=== PATIENT | male | born 1960 | race Caucasian/White ===

== ENCOUNTER → 2016-06-09 | Outpatient (CLI) | payer BC ==
[~2016-06-09] MED LIST: ALBU17IN2 INH; ALEV220T26 PO; ECOT325T5; IBUP80TA PO; MULT1TAB11 PO; No Historical Meds; OXYC-299 PO; PERC5TAB8; PERC7.5T3 PO
[2016-06-09 11:01] LABS: MEAN CORPUSCULAR HEMOGLOBIN 30.1 pg (27.0-33.0); MEAN CORPUSCULAR HGB CONC 33.3 g/dl (32.0-36.5); MEAN CORPUSCULAR VOLUME 90.4 fl (80.0-96.0); RED CELL DISTRIBUTION WIDTH 11.8 % (11.5-14.5); WHITE BLOOD COUNT 5.9 K/mm3 (4.0-10.0)
[2016-06-09 11:14] LABS: INR 0.95
--- NOTE | 2016-06-09 11:23 | ECGEPIP ---
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
[2016-06-09 11:29] LABS: ALBUMIN/GLOBULIN RATIO 1.14 (1.00-1.93); ALKALINE PHOSPHATASE 80 U/L (45-117); ALT/SGPT 38 U/L (12-78); ANION GAP 7 MEQ/L (8-16); AST/SGOT 20 U/L (15-37); BILIRUBIN,TOTAL 0.3 MG/DL (0.2-1.0); BLOOD UREA NITROGEN 17 MG/DL (7-18); CALCIUM LEVEL 8.8 MG/DL (8.5-10.1); CARBON DIOXIDE LEVEL 29 MEQ/L (21-32); CHLORIDE LEVEL 106 MEQ/L (98-107); CREATININE FOR GFR 0.91 MG/DL (0.70-1.30); GLOMERULAR FILTRATION RATE > 60.0 (>56); GLUCOSE, FASTING 88 MG/DL (70-105); POTASSIUM SERUM 4.4 MEQ/L (3.5-5.1); SODIUM LEVEL 142 MEQ/L (136-145); TOTAL PROTEIN 7.5 GM/DL (6.4-8.2)
--- NOTE | 2016-06-09 16:14 | REP ---
Chest x-ray: Two views. History: Tobacco use. Comparison study October 12, 2008. Findings: There is mild left lower lobe discoid atelectasis or linear fibrosis. The lungs are otherwise well inflated and clear. The pleural angles are sharp. Heart size is normal. There are degenerative changes in the thoracic spine. Pulmonary vasculature is not increased. Otherwise unremarkable. Impression: Linear opacities in the left lower lobe consistent with discoid atelectasis or fibrosis. Otherwise no acute disease. Signed by Elder Gomez MD 06/09/2016 04:35 P
== END ==
LOC: M ADMPAT 09:24 → EDSTATUS 09:30
PROVIDERS: ATTEND Orthopaedic Surgery
DX: M16.11 Unilateral primary osteoarthritis, right hip (principal)

== ENCOUNTER 2016-06-23 06:44 | Inpatient (IN) | payer BC ==
[2016-06-09 10:32] VITALS: BP 130/98
--- NOTE | 2016-06-18 14:00 | HPE ---
DATE OF ADMISSION: 06/23/2016 ATTENDING PHYSICIAN: Dr. Villa CHIEF COMPLAINT: Right hip pain and stiffness. Sanjay is a pleasant 56-year-old male presenting to the clinic today with progressively worsening right hip pain and stiffness. He has failed to improve with conservative management. He has elected for surgery for his continued symptoms with weightbearing activities and activities of daily living. He has consented for a right total hip arthroplasty by Dr. Villa. Medical optimization pending with Ila Styles and is not present for review today. CURRENT MEDICATIONS: - meloxicam 7.5 mg daily ALLERGIES: No known drug allergies. PAST MEDICAL HISTORY: None. SOCIAL HISTORY: Patient is a former smoker, quit in 1992. He rarely consumes alcohol. REVIEW OF SYSTEMS: The patient does report that a few days ago he woke up feeling warm and had an episode of diarrhea, but otherwise no continued symptoms , fevers, chills, nausea, or vomiting. No chest pain, shortness of breath. He does report a mild cough last night, but that seems to have improved today. He does have persistent pain in the right hip with weight bearing activities. PHYSICAL EXAMINATION: Well-nourished, well-developed male in no apparent distress. He is walking with a limping gait favoring the right side. Inspection of the right hip shows the skin to be intact. There is hip irritability elicited with range of motion. He does have normal strength of the right lower extremity. His calf is soft and nontender to palpation. Distally, he is neurovascularly intact. NECK: Supple without lymphadenopathy or jugular venous distention (JVD). HEART: Regular rate and rhythm. LUNGS: Clear to auscultation bilaterally without rales or wheezes. ABDOMEN: Bowel sounds are present. VITAL SIGNS: 5 feet 9.5 inches, weight 179 pounds. Temperature 98.6, blood pressure 114/80, heart rate 84, respiratory rate 20. LABORATORY DATA: EKG shows a sinus rhythm. Chest x-ray shows linear opacities in the left lower lobe consistent with discoid atelectasis or fibrosis. Otherwise, no acute disease. Comprehensive metabolic profile: Fasting glucose 88, BUN 17, creatinine for GFR 0.91, GFR 60, sodium 142, potassium 4.4, chloride 106, carbon dioxide 29, anion gap low at 7, calcium 8.8. AST 20, ALT 38, alkaline phosphatase 80, total bilirubin 0.3, total protein 7.5, albumin 4.0, albumin/globulin ratio 1.14. Urinalysis was negative with the exception of a small amount of mucous. Urine culture reveals no growth. Nasal and sinus culture shows normal guerita. Complete blood count: WBC 5.9, RBC 5.04, hemoglobin 15.2, hematocrit 45.6, platelets 314. Erythrocyte sedimentation rate 4, prothrombin time 12.8, INR 0.95. DIAGNOSIS: Symptomatic osteoarthritis of the right hip with x-rays notable for end stage degenerative changes. PLAN: Patient has consented for a right total hip arthroplasty by Dr. Villa. PAVEL
[~2016-06-23] VITALS: Ht 180.3 cm; Wt 85.7 kg
[~2016-06-23 06:44] MED LIST changes: +LR 1,000 ML IV SCH
[2016-06-23] MEDS ORDERED: LR 1,000 ML IV SCH ×2 (07:00→11:30)
[2016-06-23] MEDS ORDERED: COUM1TAB17 PO (07:27)
[2016-06-23] MEDS ORDERED: fentaNYL 100 MCG/2 ML INJECTION (J3010) As Ordered ONE (07:47)
[2016-06-23] MEDS ORDERED: MIDAZOLAM INJ 2 MG/2 ML VIAL (J2250) As Ordered ONE ×2 (07:47→08:40)
[2016-06-23] MEDS ORDERED: PROPOFOL 200 MG/20 ML VIAL As Ordered ONE ×3 (07:47→09:38)
[2016-06-23] MEDS ORDERED: LIDOCAINE 2% INJ 100 MG/5 ML SDV (FOR ANES.) As Ordered ONE (07:47)
[2016-06-23] MEDS ORDERED: ceFAZolin 1GM INJ (J0690) As Ordered ONE (08:08)
[2016-06-23] MEDS ORDERED: ePHEDrine SULFATE 25 MG/5 ML(5MG/ML) SYRINGE As Ordered ONE ×2 (09:05→09:49)
[2016-06-23] MEDS ORDERED: ceFAZolin 1GM INJ (J0690) IR ONE (09:28)
[2016-06-23] MEDS ORDERED: ONDANSETRON 4MG/2ML VIAL (J2405) As Ordered ONE (09:46)
[2016-06-23] MEDS ORDERED: MORPHINE PCA 1MG/ML 100ML CADD As Ordered ONE (10:41)
[2016-06-23] MEDS ORDERED: PERCOCET 5MG/325MG TAB As Ordered ONE (11:06)
[2016-06-23] MEDS: PERCOCET 5MG/325MG TAB PO PRN ×4 (11:28→20:50)
[2016-06-23] MEDS ORDERED: diphenhydrAMINE INJ 50MG/ML VIAL (J1200) IV PRN (11:30)
[2016-06-23] MEDS ORDERED: NALOXONE INJ 0.4 MG/1 ML VIAL (J2310) IV PRN (11:30)
[2016-06-23] MEDS ORDERED: ONDANSETRON 4MG/2ML VIAL (J2405) IV PRN ×3 (11:30→16:30)
[2016-06-23] MEDS ORDERED: MORPHINE PCA 1MG/ML 100ML CADD IV PRN (11:30)
[2016-06-23] MEDS ORDERED: FLEET ENEMA PR PRN (11:30)
[2016-06-23] MEDS ORDERED: ACETAMINOPHEN TAB 650MG DOSE (2X325MG) PO PRN (11:30)
[2016-06-23] MEDS ORDERED: EPIDURAL/PCA KEYS XX PRN (11:30)
[2016-06-23] MEDS ORDERED: NALBUPHINE HCL 10 MG/ML AMP (J2300) IV PRN (11:30)
[2016-06-23] MEDS ORDERED: fentaNYL 100 MCG/2 ML INJECTION (J3010) IV PRN (11:30)
[2016-06-23] MEDS ORDERED: MORPHINE 2 MG/ML 1ML SYRINGE IV PRN ×2 (11:30→16:30)
[2016-06-23 12:15] VITALS: BP 131/95
[2016-06-23 12:45] VITALS: BP 121/78
[2016-06-23] MEDS: LR 1,000 ML IV SCH (13:35)
[2016-06-23 13:45] VITALS: BP 149/93
[2016-06-23] MEDS ORDERED: ONDANSETRON 4 MG TAB (S0181) PO PRN (16:30)
[2016-06-23] MEDS ORDERED: PERCOCET 5MG/325MG TAB PO PRN (16:30)
[2016-06-23 16:45] VITALS: BP 124/77
[2016-06-23] MEDS ORDERED: WARFARIN SOD 5 MG TAB PO ONE (17:00)
[2016-06-23] MEDS ORDERED: MORPHINE 4 MG/ML 1ML SYRINGE IV PRN (17:00)
[2016-06-23 22:00] VITALS: BP 121/75
[2016-06-24] MEDS: LR 1,000 ML IV SCH
[2016-06-24] MEDS: PERCOCET 5MG/325MG TAB PO PRN ×4 (01:10→14:49)
--- NOTE | 2016-06-24 05:08 | RO ---
DATE OF PROCEDURE: 06/23/2016 PREOPERATIVE DIAGNOSIS: Right hip osteoarthritis. POSTOPERATIVE DIAGNOSIS: Right hip osteoarthritis. PROCEDURE: Right total hip arthroplasty using a size 7 high offset [place] stem with +5 neck and a 36 mm ceramic ball with a 56 mm cup and a neutral polyethylene liner. Prosthesis made by [employer]. SURGEON: Dr. Sagar Villa LAB ANALYST: Ms. Yue Saini ANESTHESIA: Spinal. ESTIMATED BLOOD LOSS: 200 mL. COMPLICATIONS: None. SPECIMENS: Femoral head. PROCEDURE: Antibiotics were given preoperatively and then a successful spinal anesthetic was induced. Then, a Nunez catheter was placed. Then, he was placed in a lateral decubitus position. A [place] hip positioner was utilized. Down leg was well padded, especially the peroneal nerve. The right hip area was carefully prepped and then draped in the usual sterile fashion. After appropriate time-out, a longitudinal incision was made for a direct lateral approach to the hip. Bovie cautery was used to coagulate the crossing vessels down to the tensor fascia. The tensor fascia was then divided in line with the skin incision. We then split the gluteus medius and anterior one-third posterior two-third junction. Then, underlying this we split the gluteus minimus and anterior hip capsule, carefully dissected off the anterior trochanter as we then carefully dislocated his hip anteriorly and placed his leg in a leg bag anteriorly. We then identified the piriformis fossa and placed a starter reamer in the piriformis fossa, followed by the canal finding reamer, then the lateralizing reamer and then we reamed up to a size 6 and then eventually to a size 7 reamer. Femoral neck osteotomy was performed using the template. We were about a fingers breadth above the lesser trochanter. We then began broaching first with a box osteotome to set the version to match his anatomy and then we broached up eventually to a size 7 broach. Calcar planing was not necessary. We then exposed the acetabulum and performed a labral excision 360 degrees. We then began reaming first with a 48 mm reamer. I had deepened the socket because he had a significant amount of lateralization. Tried to get it down to the teardrop and then expanded in 1 mm increments up to 55. A 56 trial fit nicely. Using the extramedullary alignment jig to make sure we had the appropriate abduction and version, and then we placed the real 56 cup after copiously irrigating out the acetabulum. There was a large anterior and inferior osteophyte, which was removed with a 3/4 inch osteotome and a rongeur. Then, the real polyethylene was placed after copiously irrigating and it fit nicely. We then trialed first the size 7 high offset 1.5 neck length with a 36 mm ball. He had excellent alignment of the cup. He had good stability with flexion, internal rotation and adduction, as well as extension and external rotation with no impingement or dislocation, but I felt that there was a little bit of telescoping so I decided on a+5 neck length and that was trialed as well, and that eliminated the telescoping. As I felt this was the appropriate tension, we then removed all the trial components, copiously irrigated out the femoral canal and placed the real #7 [place] stem and dried the trunnion and placed the 36, +5 ball and then reduced the hip after copiously irrigating once again. We then did a meticulous closure of first anterior capsule and gluteus minimus back anatomically with interrupted #1 PDS sutures. I then closed the gluteus medius in a separate layer anatomically with several #1 interrupted PDS sutures, irrigating between layers and then I closed the tensor fascia with a running #2 Stratafix suture after irrigating. The subdermal tissues were closed with interrupted #2-0 PDS suture. The skin was closed with chandra covered by Adaptic, dry sterile bulky dressing. He was then turned supine and abduction pillow placed. Then, he was transferred to the recovery room in stable condition. There were no intraoperative complications. Mrs. Yue Saini was critical to the success of this procedure by helping with manipulating the leg, dislocating and relocating the hip several times throughout the surgery, helped to position the patient, helped to close the wound, amongst many other tasks throughout the operation.
[2016-06-24 06:00] VITALS: BP 131/95
[2016-06-24 06:38] LABS: MEAN CORPUSCULAR HEMOGLOBIN 30.8 pg (27.0-33.0); MEAN CORPUSCULAR HGB CONC 34.4 g/dl (32.0-36.5); MEAN CORPUSCULAR VOLUME 89.7 fl (80.0-96.0); WHITE BLOOD COUNT 10.2 K/mm3 (4.0-10.0)
[2016-06-24 06:44] LABS: INR 1.18
[2016-06-24 06:47] LABS: ANION GAP 10 MEQ/L (8-16); BLOOD UREA NITROGEN 11 MG/DL (7-18); CALCIUM LEVEL 8.2 MG/DL (8.5-10.1); CARBON DIOXIDE LEVEL 27 MEQ/L (21-32); CHLORIDE LEVEL 101 MEQ/L (98-107); CREATININE FOR GFR 0.89 MG/DL (0.70-1.30); GLOMERULAR FILTRATION RATE > 60.0 (>56); GLUCOSE, FASTING 119 MG/DL (70-105); POTASSIUM SERUM 3.7 MEQ/L (3.5-5.1); SODIUM LEVEL 138 MEQ/L (136-145)
[2016-06-24] MEDS: MIRALAX *UNIT DOSE* 17GM PACKET PO SCH (08:08)
[2016-06-24] MEDS: oxyCODONE 10 MG CR TAB PO SCH ×2 (08:08→20:13)
[2016-06-24] MEDS: MOM 30ML SUSPENSION UDC PO SCH (08:08)
[2016-06-24] MEDS: SENOKOT S TAB PO SCH ×2 (08:08→20:11)
--- NOTE | 2016-06-24 10:45 | REP ---
Clinical: Status post arthroplasty. Technique: AP and cross-table lateral views. Findings: The patient is status post right hip replacement with normal positioning and appearance to the femoral and acetabular components. Overlying postsurgical changes appreciated. Impression: Satisfactory right hip replacement radiographs. Signed by Donell Rangel MD 06/24/2016 10:37 A
[2016-06-24 14:00] VITALS: BP 149/93
[2016-06-24] MEDS ORDERED: WARFARIN SOD 5 MG TAB PO SCH (17:00)
[2016-06-24 20:00] VITALS: BP 152/87
[2016-06-25 02:00] VITALS: BP 145/85
[2016-06-25] MEDS: PERCOCET 5MG/325MG TAB PO PRN ×2 (03:00→11:05)
[2016-06-25 06:00] VITALS: BP 139/84
[2016-06-25 06:56] LABS: MEAN CORPUSCULAR HEMOGLOBIN 30.9 pg (27.0-33.0); MEAN CORPUSCULAR HGB CONC 34.4 g/dl (32.0-36.5); MEAN CORPUSCULAR VOLUME 89.9 fl (80.0-96.0); RED CELL DISTRIBUTION WIDTH 12.1 % (11.5-14.5); WHITE BLOOD COUNT 10.5 K/mm3 (4.0-10.0)
[2016-06-25 07:17] LABS: ANION GAP 9 MEQ/L (8-16); BLOOD UREA NITROGEN 10 MG/DL (7-18); CALCIUM LEVEL 8.6 MG/DL (8.5-10.1); CARBON DIOXIDE LEVEL 27 MEQ/L (21-32); CHLORIDE LEVEL 101 MEQ/L (98-107); CREATININE FOR GFR 0.95 MG/DL (0.70-1.30); GLOMERULAR FILTRATION RATE > 60.0 (>56); GLUCOSE, FASTING 150 MG/DL (70-105); POTASSIUM SERUM 3.8 MEQ/L (3.5-5.1); SODIUM LEVEL 137 MEQ/L (136-145)
[2016-06-25 07:20] LABS: INR 1.4
[2016-06-25] MEDS ORDERED: PERC5TAB6 PO (07:50)
[2016-06-25] MEDS ORDERED: OXYC-299 PO (07:50)
[2016-06-25] MEDS ORDERED: COUM2.5T11 PO (07:50)
[2016-06-25] MEDS: oxyCODONE 10 MG CR TAB PO SCH (08:21)
[2016-06-25] MEDS: MOM 30ML SUSPENSION UDC PO SCH (08:22)
[2016-06-25] MEDS: MIRALAX *UNIT DOSE* 17GM PACKET PO SCH (08:22)
[2016-06-25] MEDS: SENOKOT S TAB PO SCH (08:22)
[2016-06-25 14:00] VITALS: BP 130/81
--- NOTE | 2016-06-30 07:22 | DSES ---
DATE OF ADMISSION: 06/23/2016 DATE OF DISCHARGE: 06/25/2016 ATTENDING PHYSICIAN: Dr. Nahum Villa ADMISSION DIAGNOSIS: Osteoarthritis right hip. OTHER DIAGNOSIS: None. DISCHARGE DIAGNOSIS: Osteoarthritis right hip, status post right total hip arthroplasty. HISTORY: This is a pleasant 56-year-old male patient with progressively worsening right hip pain and stiffness. He failed to improve with conservative management. He was admitted for elective hip replacement on the right side. OPERATION PERFORMED: Right total hip arthroplasty. HOSPITAL COURSE: The patient was admitted on day of surgery. Underwent a right total hip arthroplasty, which was uneventful. He did well in the postoperative period. His hospital course was without complications. He was up with physical therapy, per the protocol. His pain was controlled. On day of discharge, he was doing well, weightbearing as tolerated on his right lower extremity. He will use adjusted dose Coumadin and thromboembolic deterrent (GROVER) stockings for 30 days postoperative for deep venous thrombosis (DVT) prophylaxis. He will resume his preoperative medications and diet. He was given instructions to include but not limited to wound monitoring and activity limitations. He will followup in our office in 10-14 days for surgical followup. Please refer to the medical record for further details.
== END 2016-06-25 14:20 | disposition home or self-care (01) | DRG 301 ==
LOC: M OR 06:44 → M MS5PR 12:10
PROVIDERS: ADMIT Orthopaedic Surgery; ATTEND Orthopaedic Surgery
PROC: 0SR904A Replacement of Right Hip Joint with Ceramic on Polyethylene Synthetic Substitute, Uncemented, Open Approach (ICD-10-PCS; principal; 2016-06-23 08:30)
DX: M16.11 Unilateral primary osteoarthritis, right hip (principal); F17.220 Nicotine dependence, chewing tobacco, uncomplicated; R26.89 Other abnormalities of gait and mobility; Z79.899 Other long term (current) drug therapy